=== PATIENT | male | born 1965 | race Caucasian/White ===

== ENCOUNTER → 2020-04-06 | Outpatient (CLI) | payer BC ==
--- NOTE | 2020-04-07 01:07 | REP ---
Clinical: Lower back pain . Technique: AP, lateral, bilateral oblique, and coned-down views. Comparison: 09/17/2006 Findings: Alignment and lordosis is maintained. The vertebral bodies including transverse process and spinous processes are intact and normal. There is no evidence for acute fracture / compression injury or subluxation. No evidence for spondylolysis or spondylolisthesis. No significant degenerative change is noted. Impression: Normal age-appropriate lumbosacral spine radiograph series. If the patient remains symptomatic consider MRI for further investigation. Electronically Signed by Piyush Barfield MD 04/07/2020 12:58 A
== END ==
LOC: M LAB 11:27
PROVIDERS: ATTEND Family Medicine
DX: M54.5 Low back pain (principal)

== ENCOUNTER → 2020-10-19 | Outpatient (CLI) | payer BC ==
--- NOTE | 2020-10-21 06:09 | REP ---
INDICATION: PAIN COMPARISON: None. TECHNIQUE: AP, lateral, bilateral oblique views of the right elbow. FINDINGS: No acute fracture or dislocation is appreciated. Joint spaces and surrounding soft tissues appear normal. Lateral view demonstrates normal positioning to the anterior and posterior fat pads without evidence for effusion/hemarthrosis. No subcutaneous emphysema or foreign body identified. IMPRESSION: Normal age-appropriate right elbow radiographs. <Electronically signed by Piyush Barfield > 10/21/20 [id number]
== END ==
LOC: M WUC 15:40
PROVIDERS: ATTEND Physician Assistant
DX: M25.521 Pain in right elbow (principal)

== ENCOUNTER 2023-03-30 07:04 | Day surgery (SDC) | payer BC ==
[~2023-03-30] VITALS: Ht 177.8 cm; Wt 96.5 kg
[2023-03-30] MEDS ORDERED: PANTOPRAZOLE 40MG VIAL IV ONE (07:30)
[2023-03-30] MEDS ORDERED: ACETAMINOPHEN 325 MG TAB PO ONE (07:50)
[2023-03-30] MEDS: NS 1,000 ML IV SCH ×4 (08:04→17:54)
[2023-03-30 08:31] LABS: BASO # 0.1 10^3/uL (0.0-0.2); BASO % 0.4 % (0.0-1.0); HEMATOCRIT 43.9 % (42.0-52.0); HEMOGLOBIN 14.5 g/dl (13.5-17.5); LYMPH # 0.8 10^3/uL (1.5-5.0); LYMPH % 4.8 % (24.0-44.0); MEAN CORPUSCULAR HEMOGLOBIN 31.4 pg (27.0-33.0); MONO # 1.2 10^3/uL (0.0-0.8); MONO % 7.5 % (2.0-8.0); NEUTROPHILS # 14.1 10^3/uL (1.5-8.5); NEUTROPHILS % 86.6 % (36.0-66.0); PLATELET COUNT, AUTOMATED 215 10^3/uL (150-450); RED BLOOD COUNT 4.62 10^6/uL (4.30-6.10); WHITE BLOOD COUNT 16.3 10^3/uL (4.0-10.0)
[2023-03-30 08:45] LABS: ALBUMIN 3.7 G/DL (3.2-5.2); BILIRUBIN,DIRECT 0.7 MG/DL (<0.4); BILIRUBIN,TOTAL 1.9 MG/DL (0.3-1.2); TOTAL PROTEIN 6.7 G/DL (5.7-8.2)
[2023-03-30 08:57] LABS: RSV AMPLIFICATION NEGATIVE (NEGATIVE)
[2023-03-30 09:07] LABS: INR 1.05; PROTHROMBIN TIME 13.9 SECONDS (12.5-14.5)
[2023-03-30] MEDS ORDERED: PIPERACILLIN/TAZOBACTAM SOD 4.5 GM in D5W MINI-BAG PLUS 50 ML IV ONE (09:20)
[2023-03-30] MEDS ORDERED: HYDR-3363 PO (09:57)
[2023-03-30] MEDS ORDERED: ACET1TAB55 PO (09:57)
[2023-03-30] MEDS ORDERED: CICL0.7733 TOP (09:57)
[2023-03-30] MEDS ORDERED: HOME MED LIST COMPLETE! XX SCH (10:00)
[2023-03-30] MEDS ORDERED: ONDANSETRON 4MG 2ML VIAL IV ONE (11:10)
[2023-03-30] MEDS ORDERED: MORPHINE 4 MG/ML 1ML VIAL IV ONE (11:10)
[2023-03-30] MEDS ORDERED: LIDOCAINE 2% 100MG/5ML SDV (FOR ANES.) As Ordered ONE (13:43)
[2023-03-30] MEDS ORDERED: MIDAZOLAM INJ 2MG/2ML VIAL As Ordered ONE (13:43)
[2023-03-30] MEDS ORDERED: SUGAMMADEX SODIUM 500 MG/5 ML VIAL (BRIDION) As Ordered ONE (13:43)
[2023-03-30] MEDS ORDERED: ROCURONIUM BROMIDE 50MG/5ML VIAL As Ordered ONE (13:43)
[2023-03-30] MEDS ORDERED: fentaNYL 100 MCG/2 ML INJECTION As Ordered ONE (13:43)
[2023-03-30] MEDS ORDERED: ONDANSETRON 4MG 2ML VIAL As Ordered ONE (13:44)
[2023-03-30] MEDS ORDERED: ACETAMINOPHEN 1000MG 100ML IV BAG As Ordered ONE (13:44)
[2023-03-30] MEDS ORDERED: propofoL 200 MG/20 ML VIAL As Ordered ONE ×2 (13:44→13:47)
[2023-03-30] MEDS ORDERED: BUPIVACAINE/EPIN 0.25% 30ML VIAL As Ordered ONE (13:47)
[2023-03-30] MEDS ORDERED: KETOROLAC 60MG 2ML VIAL As Ordered ONE (14:13)
[2023-03-30] MEDS ORDERED: ZOSYN 3.375GM VIAL As Ordered ONE (14:23)
[2023-03-30] MEDS ORDERED: MORPHINE 2 MG/ML 1ML VIAL IV PRN (15:15)
[2023-03-30] MEDS ORDERED: MORPHINE 4 MG/ML 1ML VIAL IV PRN ×2 (15:15)
[2023-03-30] MEDS ORDERED: ONDANSETRON 4MG 2ML VIAL IV PRN (15:15)
[2023-03-30 17:30] VITALS: BP 115/69
[2023-03-30 18:00] VITALS: BP 116/69
[2023-03-30 18:30] VITALS: BP 116/69
[2023-03-30 20:12] VITALS: BP_SYST 114; BP_SYST 134; BP_DIAS 74
[2023-03-30] MEDS: KETOROLAC 30 MG/ML 1ML VIAL IV SCH (20:27)
[2023-03-30] MEDS: PIPERACILLIN/TAZOBACTAM SOD 3.375 GM in D5W MINI-BAG PLUS 50 ML IV SCH (20:27)
[2023-03-30 20:51] VITALS: BP 115/55
[2023-03-30] MEDS ORDERED: hydrOXYzine 50 MG TAB PO SCH (21:00)
[2023-03-30 22:10] VITALS: BP 112/65
[2023-03-31 02:00] VITALS: BP 112/65
[2023-03-31] MEDS: PIPERACILLIN/TAZOBACTAM SOD 3.375 GM in D5W MINI-BAG PLUS 50 ML IV SCH ×2 (02:12→08:50)
[2023-03-31] MEDS: KETOROLAC 30 MG/ML 1ML VIAL IV SCH ×2 (02:13→08:51)
[2023-03-31] MEDS: NS 1,000 ML IV SCH (04:48)
[2023-03-31 06:38] VITALS: BP 113/68
[2023-03-31] MEDS ORDERED: PANTOPRAZOLE 40MG VIAL IV SCH (09:00)
[2023-03-31 10:00] VITALS: BP 112/65
[2023-03-31] MEDS ORDERED: AUGM500T34 PO (11:20)
== END 2023-03-31 13:25 | disposition home or self-care (01) ==
LOC: M ED 07:04 → M SDC 07:05 → M MS5PR 17:20 → M SDC 03-31 13:25
PROVIDERS: ATTEND Surgery
DX: K35.32 Acute appendicitis with perforation, localized peritonitis, and gangrene, without abscess (principal); K21.9 Gastro-esophageal reflux disease without esophagitis; Z86.16 Personal history of COVID-19; Z79.899 Other long term (current) drug therapy
CPT/HCPCS: 44970; 74176; 80076; 82150; 83690; 85025; 85610; 87631; 88304; 96361; 96365; 96366; 96375; 96376; 99284; C9113; J0131; J1100; J1885; J2250; J2405; J2543; J3010; S0020

== ENCOUNTER → 2023-04-03 | Outpatient (CLI) | payer BC ==
[~2023-04-03] MED LIST: ACET1TAB55 PO; AUGM500T34 PO; CICL0.7733 TOP; HYDR-3363 PO
[2023-04-03 10:31] LABS: BASO # 0.1 10^3/uL (0.0-0.2); BASO % 0.7 % (0.0-1.0); EOS # 0.2 10^3/uL (0.0-0.5); EOS % 2.5 % (0.0-3.0); HEMATOCRIT 42.3 % (42.0-52.0); HEMOGLOBIN 14.2 g/dl (13.5-17.5); LYMPH # 0.9 10^3/uL (1.5-5.0); LYMPH % 12.4 % (24.0-44.0); MEAN CORPUSCULAR HEMOGLOBIN 31.3 pg (27.0-33.0); MEAN CORPUSCULAR HGB CONC 33.6 g/dl (32.0-36.5); MEAN CORPUSCULAR VOLUME 93.4 fl (80.0-96.0); MONO # 0.7 10^3/uL (0.0-0.8); MONO % 9.8 % (2.0-8.0); NEUTROPHILS # 5.5 10^3/uL (1.5-8.5); NEUTROPHILS % 73.8 % (36.0-66.0); PLATELET COUNT, AUTOMATED 336 10^3/uL (150-450); RED BLOOD COUNT 4.53 10^6/uL (4.30-6.10); WHITE BLOOD COUNT 7.5 10^3/uL (4.0-10.0)
[2023-04-03 10:55] LABS: ALBUMIN 3.1 G/DL (3.2-5.2); ALKALINE PHOSPHATASE 57 U/L (46-116); ALT/SGPT 55 U/L (7.0-40); AST/SGOT 8 U/L (<34); BILIRUBIN,TOTAL 0.6 MG/DL (0.3-1.2); BLOOD UREA NITROGEN 12 MG/DL (9-23); CALCIUM LEVEL 9.3 MG/DL (8.5-10.1); CARBON DIOXIDE LEVEL 29 MMOL/L (20-31); CHLORIDE LEVEL 106 MMOL/L (98-107); CREATININE FOR GFR 0.82 MG/DL (0.70-1.30); GLOMERULAR FILTRATION RATE > 60.0 (>56); GLUCOSE, FASTING 94 MG/DL (60-100); POTASSIUM SERUM 4.7 MMOL/L (3.5-5.1); SODIUM LEVEL 142 MMOL/L (136-145); TOTAL PROTEIN 6.6 G/DL (5.7-8.2)
== END ==
LOC: M LAB 09:39
PROVIDERS: ATTEND Physician Assistant
DX: K35.80 Unspecified acute appendicitis (principal)

== ENCOUNTER 2025-01-01 10:52 | Day surgery (SDC) | payer BC, OTHER ==
[~2025-01-01] VITALS: Ht 177.8 cm; Wt 93.9 kg
[~2025-01-01 10:52] MED LIST changes: +LIDOCAINE 2% 100MG/5ML SDV (FOR ANES.) As Ordered ONE; +propofoL 200 MG/20 ML VIAL As Ordered ONE
[2025-01-01 12:40] VITALS: BP 125/78; O2SAT 95
== END 2025-01-01 12:49 | disposition home or self-care (01) ==
LOC: M OPP 10:52
PROVIDERS: ATTEND Surgery
DX: K57.30 Diverticulosis of large intestine without perforation or abscess without bleeding (principal); Z86.0100 Personal history of colon polyps, unspecified; Z79.899 Other long term (current) drug therapy